=== PATIENT | male | born 1960 | race Caucasian/White ===

== ENCOUNTER 2019-12-26 15:45 | Emergency (ER) | payer SELFPAY ==
[~2019-12-26] VITALS: Ht 167.6 cm; Wt 81.8 kg
[2019-12-26 15:51] VITALS: BP 154/101
[2019-12-26] MEDS: LIDOCAINE MPF 1% 10 MG/ML VIAL INJ ONE (16:15)
[2019-12-26] MEDS ORDERED: LIDOCAINE 2% 1000 MG/50 ML VIAL INJ ONE (16:17)
[2019-12-26] MEDS ORDERED: cefTRIAXone 1,000 MG VIAL ONE (16:53)
[2019-12-26] MEDS ORDERED: LIDOCAINE MPF 1% 5 ML ONE (16:54)
[2019-12-26] MEDS: cefTRIAXone 1,000 MG in LIDOCAINE MPF 1% 2.1 ML IM ONE (17:04)
[2019-12-26] MEDS ORDERED: BACITRACIN OINT 500 UNITS/GM PKT TP ONE (18:00)
[2019-12-26] MEDS: BACITRACIN OINT 500 UNITS/GM PKT TP ONE (18:26)
[2019-12-26 18:34] VITALS: BP 154/101
== END 2019-12-26 18:35 | disposition home or self-care (01) ==
LOC: MED 15:45
DX: S61.214A Laceration without foreign body of right ring finger without damage to nail, initial encounter (principal); S61.216A Laceration without foreign body of right little finger without damage to nail, initial encounter; W27.8XXA Contact with other nonpowered hand tool, initial encounter; Y93.89 Activity, other specified; Y92.89 Other specified places as the place of occurrence of the external cause; Y99.8 Other external cause status
CPT/HCPCS: 12002; 73130; 96372; 99283; J0696; J2001; Q0092

== ENCOUNTER 2019-12-28 11:49 | Emergency (ER) | payer SELFPAY ==
[~2019-12-28] VITALS: Ht 165.1 cm; Wt 84.4 kg
[2019-12-28 11:56] VITALS: BP 160/89
[2019-12-28 14:38] VITALS: BP 160/89
== END 2019-12-28 14:39 | disposition home or self-care (01) ==
LOC: MED 11:49
DX: S61.214D Laceration without foreign body of right ring finger without damage to nail, subsequent encounter (principal); S61.216D Laceration without foreign body of right little finger without damage to nail, subsequent encounter; X58.XXXD Exposure to other specified factors, subsequent encounter
CPT/HCPCS: 99282

== ENCOUNTER 2020-01-04 14:49 | Emergency (ER) | payer MEDICAID ==
[~2020-01-04] VITALS: Ht 172.7 cm; Wt 81.6 kg
[2020-01-04 15:00] VITALS: BP 163/96
[2020-01-04] MEDS ORDERED: CEPHALEXIN 500 MG CAP PO ONE (15:35)
[2020-01-04] MEDS ORDERED: SULFAMETH/TRIMETH DS 800/160MG 1 TAB PO ONE (15:35)
[2020-01-04 15:42] VITALS: BP 163/96
== END 2020-01-04 15:42 | disposition home or self-care (01) ==
LOC: MED 14:49
DX: S61.214D Laceration without foreign body of right ring finger without damage to nail, subsequent encounter (principal); S61.216D Laceration without foreign body of right little finger without damage to nail, subsequent encounter; Z91.14 Patient's other noncompliance with medication regimen; X58.XXXD Exposure to other specified factors, subsequent encounter
CPT/HCPCS: 99283

== ENCOUNTER 2020-01-10 14:46 | Emergency (ER) | payer MEDICAID ==
[~2020-01-10] VITALS: Ht 167.6 cm; Wt 81.6 kg
[2020-01-10 14:50] VITALS: BP 163/100
--- NOTE | 2020-01-10 14:58 | NUR ---
Pt ambulated to lobby. Awaiting for bed availability.
--- NOTE | 2020-01-10 15:41 | NUR ---
Pt ambulated to bed 7
--- NOTE | 2020-01-10 16:01 | NUR ---
59 Y/O MALE ARRIVES TO ER FOR SUTURE REMOVAL ON RIGHT HAND FOR 4TH AND 5TH DIGIT, SUTURES WERE PERFORMED HERE 2 WEEKS AGO AFTER WORK ACCIDENT. CAP REFILL <3 BILAT UPPER EXT. RADIAL PULSES PRESENT BILAT. NO BLEEDING NOTED. ROM +. CMS+
[2020-01-10 16:31] VITALS: BP 125/65
--- NOTE | 2020-01-10 16:31 | NUR ---
Patient discharged with v/s stable. Written and verbal after care instructions given and explained. Patient verbalized understanding. Ambulatory with steady gait. All questions addressed prior to discharge. Advised to follow up with PMD.
== END 2020-01-10 16:31 | disposition home or self-care (01) ==
LOC: MED 14:46
DX: S61.411D Laceration without foreign body of right hand, subsequent encounter (principal); X58.XXXD Exposure to other specified factors, subsequent encounter; R03.0 Elevated blood-pressure reading, without diagnosis of hypertension; Z48.02 Encounter for removal of sutures
CPT/HCPCS: 99281; 99282

== ENCOUNTER 2024-02-03 00:22 | Emergency (ER) | payer MEDICAID ==
[~2024-02-03] VITALS: Ht 167.6 cm; Wt 74.8 kg
[2024-02-03 00:23] VITALS: BP 173/92; PULSE 115; RESP 18; TEMP 99.3; O2SAT 96
[2024-02-03 00:55] LABS: BASOPHILS # (AUTO) 0.2 K/uL (0.00-0.22); BASOPHILS % (AUTO) 1.3 % (0.0-2.0); HEMATOCRIT 50.1 % (36-52); LYMPHOCYTES # (AUTO) 1.5 K/uL (2.0-11.5); LYMPHOCYTES % (AUTO) 10.8 % (20.5-51.1); MEAN CORPUSCULAR HEMOGLOBIN 30 pg (27-31); MEAN CORPUSCULAR HGB CONC 34 g/dL (33-37); MEAN CORPUSCULAR VOLUME 88.5 fL (80-94); MONOCYTES # (AUTO) 0.5 K/uL (0.8-1.0); MONOCYTES % (AUTO) 3.6 % (1.7-9.3); NEUTROPHILS # (AUTO) 11.9 K/uL (1.8-7.7); NEUTROPHILS % (AUTO) 84.3 % (42.2-75.2); PLATELET COUNT (AUTO) 246 K/uL (140-450); RED BLOOD CELL COUNT(AUTO) 5.66 MIL/uL (4.20-6.10); RED CELL DISTRIBUTION WIDTH 13.4 % (11.6-13.7); WHITE BLOOD COUNT (AUTO) 14.1 K/uL (4.8-10.8)
[2024-02-03] MEDS: NACL 0.9% 1,000 ML IV ONE (01:01)
[2024-02-03] MEDS: LORazepam 2 MG/ML VIAL IVP ONE (01:02)
[2024-02-03 01:13] LABS: ALANINE AMINOTRANSFERASE 66 U/L (12-78); ALBUMIN 4.4 g/dL (3.4-5.0); ALKALINE PHOSPHATASE 101 U/L (50-136); ASPARTATE AMINOTRANSFERASE 26 U/L (15-37); BILIRUBIN,DIRECT 0.2 mg/dL (0.0-0.3); MAGNESIUM 2.1 mg/dL (1.8-2.4); TOTAL BILIRUBIN 0.9 mg/dL (0.0-1.0); TOTAL PROTEIN, SERUM 7.9 g/dL (6.4-8.2)
[2024-02-03 02:21] VITALS: BP 132/85; PULSE 91; RESP 15; TEMP 98; O2SAT 94
== END 2024-02-03 02:21 | disposition home or self-care (01) ==
LOC: MED 00:22
DX: R00.2 Palpitations (principal); G51.0 Bell's palsy
CPT/HCPCS: 36415; 71045; 80076; 83735; 84484; 85025; 85379; 93005; 96374; 99285; J2060